=== PATIENT | male | born 1965 | race Two or more races ===

== ENCOUNTER 2017-07-01 09:34 | Emergency (ER) | payer SELFPAY ==
[~2017-07-01] VITALS: Ht 180.3 cm; Wt 101.0 kg
[~2017-07-01 09:34] MED LIST: NAPR500 PO
[2017-07-01 09:40] VITALS: BP 126/90; PULSE 76; RESP 16; TEMP 98; O2SAT 97
--- NOTE | 2017-07-01 11:41 | RADRPT ---
EXAM DATE/TIME: 07/01/2017 11:08 [facility] COMPARISON: SPINE LUMBAR COMPLETE W/OBLIQ, August 30, 2011, 12:25. INDICATIONS : Fell off ladder, low back pain MEDICAL HISTORY : None. SURGICAL HISTORY : None. ENCOUNTER: Initial ACUITY: 2 days PAIN SCORE: 7/10 LOCATION: Bilateral low back FINDINGS: Degenerative changes are noted throughout the lumbar and lower thoracic spine. There is no acute comp ression fracture, spondylolisthesis or spondylolysis. Significant disc space narrowing is noted at L5 -S1 and L2-3 and to a lesser extent at L4-5. CONCLUSION: Degenerative changes throughout the lumbar and lower thoracic spine. Significant degenerative disc di sease at L5-S1 and L2-3 and to a lesser extent at L4-5. No acute compression fracture, spondylolisthe sis or spondylolysis. Galo Vargas MD on July 01, 2017 at 11:36 Board Certified Radiologist. This report was verified electronically.
--- NOTE | 2017-07-01 11:43 | RADRPT ---
EXAM DATE/TIME: 07/01/2017 11:08 [facility] COMPARISON: No previous studies available for comparison. INDICATIONS : Fell off ladder onto left shoulder, has pain and limited ROM MEDICAL HISTORY : None. SURGICAL HISTORY : None. ENCOUNTER: Initial ACUITY: 2 days PAIN SCORE: 9/10 LOCATION: Left shoulder FINDINGS: Mild degenerative changes are noted involving the left acromioclavicular and glenohumeral joints. The re is no acute fracture or dislocation. CONCLUSION: 1. No acute fracture or dislocation. 2. Mild degenerative changes involving the left acromioclavicular and glenohumeral joints. Galo Vargas MD on July 01, 2017 at 11:40 Board Certified Radiologist. This report was verified electronically.
[2017-07-01] MEDS ORDERED: TRAM50 PO (12:01)
[2017-07-01] MEDS ORDERED: IBUP1TAB7 PO (12:01)
--- NOTE | 2017-07-01 12:01 | PD ---
HPI Chief Complaint: Injury Time Seen by Provider: 10:30 Travel History International Travel<30 days: No Contact w/Intl Traveler<30days: No Traveled to known affect area: No History of Present Illness HPI 51-year-old male here with left shoulder and low back pain after he slipped and fell from a ladder about 5 feet yesterday. He reports he fell onto his left shoulder. There was no loss of consciousness. He is not anticoagulated. He denies headache, visual changes, neck pain, chest pain, shortness of breath, abdominal pain, paresthesia or weakness of the extremity. He has pain with range of motion of the left shoulder and low back. Severity is moderate. PFSH Past Medical History Medical History: Denies Significant Hx Arthritis: Yes (right hip) Diminished Hearing: No Influenza Vaccination: No Past Surgical History Surgical History: No Previous Surgery Social History Alcohol Use: Yes (beer on ) Tobacco Use: Yes (PACK PER WEEK) Substance Use: No Allergies-Medications (Allergen,Severity, Reaction): Coded Allergies: codeine (Unverified Allergy, Severe, HIVES, 07/01/17) methocarbamol (Unverified Allergy, Severe, hives, 07/01/17) penicillin G (Unverified Allergy, Severe, HIVES, 07/01/17) Reported Meds & Prescriptions Reported Meds & Active Scripts Active Ultram (Tramadol HCl) 50 Mg Tab 50 Mg PO Q6H PRN Ibuprofen 800 Mg Tab 800 Mg PO Q6HR PRN Review of Systems Except as stated in HPI: all other systems reviewed are Neg Physical Exam Narrative GENERAL: Alert and well-appearing 51-year-old male SKIN: Warm and dry. No areas of ecchymosis or abrasions HEAD: Atraumatic. Normocephalic. EYES: Pupils equal and round. EOMs intact. No injection or drainage. ENT: No nasal bleeding or discharge. Mucous membranes pink and moist. No facial bone tenderness NECK: Trachea midline. No cervical midline tenderness CARDIOVASCULAR: Regular rate and rhythm. No chest wall tenderness RESPIRATORY: No accessory muscle use. Clear to auscultation. Breath sounds equal bilaterally. Even equal chest rise GASTROINTESTINAL: Abdomen soft, non-tender, nondistended. MUSCULOSKELETAL: Extremities without clubbing, cyanosis, or edema. No obvious deformities. Left upper extremity: +ttp left proximal humerus and anterior shoulder. No step-off deformity. He has full passive range of motion. Pain with active forward extension and external rotation. 2+ distal pulses. Normal sensation. Brisk cap refill BACK: No CVA tenderness. +ttp lumbar spine with paravertebral musculature tenderness on the right. NEUROLOGICAL: Awake and alert. No obvious cranial nerve deficits. Motor grossly within normal limits. Five out of 5 muscle strength in the arms and legs. Equal Hand grasp. PSYCHIATRIC: Appropriate mood and affect; insight and judgment normal. Data Data Last Documented VS Vital Signs Date Time Temp Pulse Resp B/P (MAP) Pulse Ox O2 Delivery O2 Flow Rate FiO2 07/01/17 09:40 98.0 76 16 126/90 (102) 97 Orders Orders Shoulder, Complete (>2vws) (07/01/17 ) Spine, Lumbar Comp W/Obliq (07/01/17 ) Support Splint (07/01/17 12:01) Ed Discharge Order (07/01/17 12:02) MDM Medical Decision Making Medical Screen Exam Complete: Yes Emergency Medical Condition: Yes Differential Diagnosis Humeral fracture, shoulder dislocation, AC joint sprain, lumbar strain, lumbar fracture Narrative Course 51-year-old male with left shoulder and low back pain after a fall from approximately 5 feet yesterday. He has a normal neurologic exam. X-rays are negative for fracture. He'll be treated for shoulder injury and low back strain. Patient is ambulatory, stable and ready for discharge Diagnosis Primary Impression: Shoulder contusion Qualified Codes: S40.012A - Contusion of left shoulder, initial encounter Additional Impression: Lumbar strain Qualified Codes: S39.012A - Strain of muscle, fascia and tendon of lower back , initial encounter Referrals: Primary Care Physician Additional Instructions: Medication as directed. Follow up with her primary doctor. Avoid heavy lifting or strenuous activity Scripts Tramadol (Ultram) 50 Mg Tab 50 MG PO Q6H Y for PAIN, #12 TAB 0 Refills Prov: Velma Weinstein 07/01/17 Ibuprofen (Ibuprofen) 800 Mg Tab 800 MG PO Q6HR Y for PAIN, #40 TAB 0 Refills Prov: Velma Weinstein 07/01/17 Disposition: 01 DISCHARGE HOME Condition: Stable Velma Weinstein Jul 01, 2017 12:01
== END 2017-07-01 12:13 | disposition home or self-care (01) ==
LOC: PHEFT 09:34
DX: S40.012A Contusion of left shoulder, initial encounter (principal); S39.012A Strain of muscle, fascia and tendon of lower back, initial encounter; M51.37 Other intervertebral disc degeneration, lumbosacral region; M51.36 Other intervertebral disc degeneration, lumbar region; W11.XXXA Fall on and from ladder, initial encounter; M16.11 Unilateral primary osteoarthritis, right hip; F17.200 Nicotine dependence, unspecified, uncomplicated; Z88.5 Allergy status to narcotic agent; Z88.0 Allergy status to penicillin
CPT/HCPCS: 72110; 73030; 99284